=== PATIENT | female | born 1930 | race Caucasian/White ===

== ENCOUNTER → 2017-11-08 | Outpatient (CLI) | payer MEDICARE, OTHER ==
[2016-08-21 13:48] VITALS: BP 157/72
[~2017-11-08] MED LIST: ASPI-482 PO; CHOL2000 PO; CRESTOR10 MG PO; FERR325T58 PO; LEVO112T4 PO; METO50TA6 PO; VERA360C2 PO; ZOLP5TAB PO; [UNRECOGNIZED DRUG - CODE] PO
--- NOTE | 2017-11-09 07:39 | RAD ---
Exam : Carotid Duplex with Grayscale Ultrasound and Spectral and Color Doppler Analysis: Clinical Indications: Bilateral carotid stenosis Comparison study: CT neck, 08/21/2016 PQRS Compliance Statement - Stenosis calculations for CT, MR and conventional angiography are based upon measurement of the distal ICA diameter in accordance with the NASCET methodology. Stenosis calculations for carotid ultrasound studies are derived from validated velocity criteria which are known to correlate with the NASCET methodology. Findings: The common, internal and external carotid arteries were examined by grayscale, color and spectral Doppler ultrasound. Mild diffuse atherosclerotic vascular disease is noted. More significant calcification appears to be present in the right carotid bulb. Mild visual narrowing seen in the proximal right internal carotid artery which correlates with increased velocity as described below. Flow in both vertebral arteries was antegrade. The following are the velocities and ratios in the carotid arteries on both sides: RIGHT ICA PV: 204cm/sec RIGHT CCA PV: 85cm/sec RIGHT ICA ED: 36cm/sec RIGHT IC/CCPV: 2.4 RIGHT VERTEBRAL: antegrade flow LEFT ICA PV: 93 cm/sec LEFT CCA PV: 99cm/sec LEFT ICA ED: 19cm/sec LEFT IC/CCPV: Less than 2 LEFT VERTEBRAL: antegrade flow <50% ICA Stenosis: PSV < 125cm/s (EDV < 40cm/s; SVR < 2.0) 50-69% ICA Stenosis: PSV < 125-229cm/s (EDV 40-99cm/s; SVR 2.0-3.9) >70% ICA Stenosis: PSV > 230cm/s (EDV >100cm/s; SVR >4.0) Impression: 1. Ultrasound findings consistent with 50-69% stenosis proximal right internal carotid artery. Approximately 70% stenosis was identified on prior CT scan from August 21, 2016. 2. Less than 50% stenosis of the left internal carotid artery by ultrasound criteria
== END | disposition home or self-care (01) ==
LOC: US 14:34
PROVIDERS: ATTEND Internal Medicine Cardiovascular Disease
DX: I65.23 Occlusion and stenosis of bilateral carotid arteries (principal)
CPT/HCPCS: 93880